=== PATIENT | male | born 2000 | race Two or more races ===

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

== ENCOUNTER → 2021-04-30 09:41 | Outpatient (CLI) | payer OTHER | END | disposition home or self-care (01) | LOC: LAB 09:41 | DX: R06.02 Shortness of breath (principal); R05 Cough; Z03.818 Encounter for observation for suspected exposure to other biological agents ruled out ==